=== PATIENT | female | born 1995 | race Caucasian/White ===

== ENCOUNTER 2023-02-06 06:18 | Emergency (ER) | payer MEDICAID ==
[2023-02-06] MEDS ORDERED: cefTRIAXone 1 GM, Lidocaine 1% 2.1 ML IM SCH ×2 (07:15)
== END 2023-02-06 08:00 | disposition home or self-care (01) ==
LOC: JD.ED 06:18
DX: K08.89 Other specified disorders of teeth and supporting structures (principal)
CPT/HCPCS: 96372; 99282; J0696; J3490